=== PATIENT | male | born 1990 | race Caucasian/White ===

== ENCOUNTER 2018-01-15 16:28 | Emergency (ER) | payer OTHER ==
[~2018-01-15] VITALS: Ht 177.8 cm; Wt 70.0 kg
[2018-01-15 16:51] VITALS: BP 149/71; PULSE 93; RESP 18; TEMP 98.7; O2SAT 100
[2018-01-15] MEDS ORDERED: IBUP1TAB7 PO (17:26)
--- NOTE | 2018-01-15 17:26 | PD ---
HPI Chief Complaint: ENT Complaint Time Seen by Provider: 17:07 Travel History International Travel<30 days: No Contact w/Intl Traveler<30days: No Traveled to known affect area: No History of Present Illness HPI 27-year-old male presents to the emergency room with complaint of spitting up dark brown bloody sputum for the past 2 days after he got shouldered in the nose on Sunday while playing football. He did have a nosebleed after the injury. Has been blowing his nose with fresh blood, but no continued nose bleeding. Has been clearing his throat of dark, brown sputum. Is able to pass air through both nostrils. Has not taken any medication or try any treatments to alleviate his symptoms. Says the pain is more like a pressure, like as if he has a sinus infection. Rates at 2/10. Nose pain is more to the right side. No known aggravating or relieving factors. No known allergies. Primary care provider is Dr. Limon. History of ADD. Has no other medical complaints. No other modifying factors or associated signs and symptoms. PFSH Social History Tobacco Use: No Allergies-Medications (Allergen,Severity, Reaction): Coded Allergies: No Known Allergies (Unverified , 01/15/18) Reported Meds & Prescriptions Reported Meds & Active Scripts Active Ibuprofen 800 Mg Tab 800 Mg PO Q6HR PRN Review of Systems Except as stated in HPI: all other systems reviewed are Neg Physical Exam Narrative GENERAL: Well-nourished, well-developed patient, in no acute distress SKIN: Warm and dry. HEAD: Atraumatic. Normocephalic. EYES: Pupils equal and round. No scleral icterus. No injection or drainage. No raccoon eyes. ENT: Mucosa pink and moist. No erythema or exudates. No uvular edema. No uvular , palatal, or tonsillar deviation. Dark brown drainage noted to the back of the throat. Airway patent. Nose is edematous and with minimal ecchymosis noted; nasal bridge appears straight; no crepitance on palpation of the nasal bones. nasal turbinates appear normal without nasal blood, purulent drainage or septal hematoma. Bilateral nares are patent. NECK: Trachea midline. CARDIOVASCULAR: Regular rate. RESPIRATORY: No accessory muscle use. GASTROINTESTINAL: Flat MUSCULOSKELETAL: No obvious deformities. No clubbing. No cyanosis. No edema. NEUROLOGICAL: Awake and alert. Oriented 3. No obvious cranial nerve deficits. Motor grossly within normal limits. Normal speech. PSYCHIATRIC: Appropriate mood and affect; insight and judgment normal. Data Data Last Documented VS Vital Signs Date Time Temp Pulse Resp B/P (MAP) Pulse Ox O2 Delivery O2 Flow Rate FiO2 01/15/18 16:51 98.7 93 18 149/71 (97) 100 Orders Orders Ed Discharge Order (01/15/18 17:26) MDM Medical Decision Making Medical Screen Exam Complete: Yes Emergency Medical Condition: Yes Medical Record Reviewed: Yes Differential Diagnosis Nasal bone fracture, contusion of nose, septal hematoma Narrative Course 27-year-old male with continued dark brown drainage to the back of his throat after he got shouldered in the nose on Sunday. I offered to x-ray the patient' s nose and he declined. I offered pain medication and he declined. I discussed the patient with Dr. Junior and he agrees with my plan of care and disposition. Ibuprofen prescribed for home. Instructed patient to follow up with primary care provider. Patient verbalizes understanding and agreement with treatment plan. Patient is medically cleared and stable for discharge. Discussed reasons to return to the emergency department. Patient agrees with treatment plan. The patients vital signs are stable and the patient is stable for outpatient follow-up and treatment. Patient discharged home, stable and in no acute distress. Diagnosis Primary Impression: Contusion of nose Qualified Codes: S00.33XA - Contusion of nose, initial encounter Referrals: Primary Care Physician Patient Instructions: Facial Contusion (ED), General Instructions, Nasal Fracture (ED) Additional Instructions: Ibuprofen or Tylenol as directed and as needed for pain Ice to affected area to reduce pain and inflammation Avoid blowing your nose Follow-up with primary care provider Return to the emergency department immediately with worsening of symptoms Med/Other Pt SpecificInfo: Prescription(s) given Scripts Ibuprofen (Ibuprofen) 800 Mg Tab 800 MG PO Q6HR Y for PAIN, #20 TAB 0 Refills Prov: Shirley James 01/15/18 Disposition: 01 DISCHARGE HOME Condition: Stable Shirley James Jan 15, 2018 17:26
== END 2018-01-15 17:39 | disposition home or self-care (01) ==
LOC: NEPK 16:28
DX: S00.33XA Contusion of nose, initial encounter (principal); W50.0XXA Accidental hit or strike by another person, initial encounter; Y93.61 Activity, american tackle football
CPT/HCPCS: 99282